=== PATIENT | male | born 1955 | race Two or more races ===

== ENCOUNTER 2024-11-25 09:36 | Day surgery (SDC) | payer OTHER ==
[2024-11-22 14:44] LABS: HEMATOCRIT 41.7 % (39.0-48.0); MEAN CELL VOLUME 94.6 fL (80.0-100.00); MEAN CORPUSCULAR HEMOGLOBIN 31.8 pg (27.00-32.0); MEAN CORPUSCULAR HGB CONC 33.6 g/dl (32.0-36.0); PLATELET COUNT 191 K/uL (150-450); RED CELL DISTRIBUTION WIDTH 14.4 % (11.5-14.5)
[2024-11-22 15:11] LABS: INR 1.04; PARTIAL THROMBOPLASTIN TIME 27.1 SECONDS (22.0-34.0); PROTHROMBIN TIME 11.3 SECONDS (9.0-11.5)
[2024-11-22 15:37] LABS: ALBUMIN 3.8 gm/dL (3.4-5.0); BILIRUBIN TOTAL 0.54 mg/dL (0.3-1.2); CALCIUM 9.3 mg/dL (8.5-10.1); CREATININE SERUM 0.93 mg/dL (0.70-1.30); GFR 80.56; GLOBULINA 3.1 G/DL (2.4-3.5); POTASSIUM 4.46 mEq/L (3.5-5.1); TOTAL PROTEIN 6.9 gm/dL (6.4-8.2)
[~2024-11-25 09:36] MED LIST: VALSARTAN
[2024-11-25] MEDS ORDERED: ENALAPRILAT DIHYDRATE 1.25 MG/ML VIAL IV ONE (17:06)
[2024-11-25] MEDS ORDERED: hydrALAZINE HCL 20 MG VIAL ONE (17:48)
== END 2024-11-25 19:00 | disposition home or self-care (01) ==
LOC: CIR.AMB 09:36
PROVIDERS: ATTEND Internal Medicine
DX: D37.1 Neoplasm of uncertain behavior of stomach (principal); K31.89 Other diseases of stomach and duodenum; C49.A2 Gastrointestinal stromal tumor of stomach; R93.3 Abnormal findings on diagnostic imaging of other parts of digestive tract